=== PATIENT | female | born 1995 | race Caucasian/White ===

== ENCOUNTER 2018-08-16 19:52 | Emergency (ER) | payer OTHER ==
[~2018-08-16] VITALS: Ht 165.1 cm; Wt 63.5 kg
[2018-08-16 19:54] VITALS: BP 122/72
[2018-08-16] MEDS ORDERED: AMPICILLIN/SULBACTAM 3 GM in NACL 0.9% 100 ML IV ONE (22:40)
[2018-08-16] MEDS ORDERED: AMPICILLIN/SULBACTAM 3 GM VIAL ONE (23:02)
[2018-08-17 00:06] VITALS: BP 118/69
== END 2018-08-17 00:11 | disposition home or self-care (01) ==
LOC: MED 19:52
DX: K04.7 Periapical abscess without sinus (principal)
CPT/HCPCS: 96365; 99283; J0295

== ENCOUNTER 2022-10-11 06:10 | Emergency (ER) | payer OTHER ==
[~2022-10-11] VITALS: Ht 165.1 cm; Wt 77.6 kg
[2022-10-11 06:23] VITALS: BP 125/90
[2022-10-11] MEDS ORDERED: ONDANSETRON 4 MG/2 ML VIAL IVP ONE ×3 (06:55→10:40)
[2022-10-11] MEDS ORDERED: NACL 0.9% 1,000 ML IV ONE ×2 (06:55→08:15)
[2022-10-11] MEDS ORDERED: MORPHINE SULFATE 4 MG/ML SYR IVP ONE ×3 (06:55→11:35)
--- NOTE | 2022-10-11 07:07 | NUR ---
26YR OLD FEMALE BIB SELF C/O ABD PAIN /VAG BLEED. PT IS PREG PROX 8WKS. PT STATED VAG BLEEDING STARTED THIS AM. SHARP ABD PAIN 8/10 LOWER ABD . DENIES FEVER V//D. SKIN WARM AND DRY. HOB ELEVATED BED AT LOWEST LEVEL NKDA NO MED HX
--- NOTE | 2022-10-11 07:08 | NUR ---
20G IV CATH PLACED L AC LABS COLLECTED
--- NOTE | 2022-10-11 07:18 | NUR ---
Ultrasound at bedside.
--- NOTE | 2022-10-11 07:25 | NUR ---
REPORT RECEIVED FROM RAMON HICKS. ASSUMED CARE AT THIS TIME
--- NOTE | 2022-10-11 07:25 | NUR ---
REPORT RECEIVED FROM RAMON HICKS. ASSUMED CARE AT THIS TIME
[2022-10-11 07:40] LABS: BASOPHILS % (AUTO) 0.3 % (0.0-2.0); EOSINOPHILS # (AUTO) 0.1 K/uL (0-0.4); EOSINOPHILS % (AUTO) 0.9 % (0.0-4.0); HEMATOCRIT 42.7 % (36-48); HEMOGLOBIN 14.1 g/dL (12.0-16.0); LYMPHOCYTES # (AUTO) 1.9 K/uL (2.5-16.5); LYMPHOCYTES % (AUTO) 15.8 % (20.5-51.1); MEAN CORPUSCULAR HEMOGLOBIN 30 pg (27-31); MEAN CORPUSCULAR HGB CONC 33 g/dL (33-37); MEAN CORPUSCULAR VOLUME 91.2 fL (80-94); MONOCYTES # (AUTO) 0.6 K/uL (0.8-1.0); MONOCYTES % (AUTO) 5.2 % (1.7-9.3); NEUTROPHILS # (AUTO) 9.4 K/uL (1.8-7.7); NEUTROPHILS % (AUTO) 77.8 % (42.2-75.2); PLATELET COUNT (AUTO) 293 K/uL (140-450); RED BLOOD CELL COUNT(AUTO) 4.69 MIL/uL (4.20-5.40); RED CELL DISTRIBUTION WIDTH 13.4 % (11.6-13.7); WHITE BLOOD COUNT (AUTO) 12.1 K/uL (4.8-10.8)
[2022-10-11 07:56] LABS: APPEARANCE,URINE CLOUDY (CLEAR); COLOR,URINE AMBER (YELLOW)
[2022-10-11 07:57] LABS: BILIRUBIN,URINE NEGATIVE (NEGATIVE); BLOOD, URINE 3+ (NEGATIVE); LEUKOCYTE ESTERASE ,URINE NEGATIVE (NEGATIVE); NITRITE, URINE NEGATIVE (NEGATIVE); UGLUCOSE NEGATIVE (NEGATIVE)
[2022-10-11 07:57] LABS: ALBUMIN 4.1 g/dL (3.4-5.0); CREATININE 0.8 mg/dL (0.6-1.3); POTASSIUM 3.6 mmol/L (3.5-5.1); TOTAL BILIRUBIN 0.5 mg/dL (0.0-1.0)
[2022-10-11 08:12] LABS: RBC,URINE 11-20 (MOD) /HPF (0-5); WBC,URINE 0-5 /HPF (0-5)
[2022-10-11 08:13] LABS: OTHER CASTS, URINE None Seen /LPF (None Seen)
[2022-10-11 08:13] LABS: ANION GAP 14.8 (8-16); CARBON DIOXIDE 23.8 mmol/L (21-32)
[2022-10-11] MEDS ORDERED: ONDANSETRON 4 MG/2 ML VIAL ONE (08:20)
[2022-10-11] MEDS ORDERED: MORPHINE SULFATE 4 MG/ML SYR ONE (08:21)
--- NOTE | 2022-10-11 09:26 | NUR ---
pt amb to restroom
--- NOTE | 2022-10-11 09:30 | NUR ---
pt amb back to room
[2022-10-11] MEDS ORDERED: METHOTREXATE 100 MG/4 ML VIAL IM ONE (10:40)
[2022-10-11 10:43] VITALS: BP 112/63
[2022-10-11] MEDS ORDERED: ACET-9525 PO (11:01)
[2022-10-11] MEDS ORDERED: ONDA-188 PO (11:01)
[2022-10-11] MEDS ORDERED: ACET-10509 PO (11:01)
--- NOTE | 2022-10-11 12:00 | NUR ---
IV removed, catheter intact and site benign. Applied folded 4x4 gauze and tape to stop bleeding.
--- NOTE | 2022-10-11 12:01 | NUR ---
Patient discharged with v/s stable. Written and verbal after care instructions given and explained. Patient alert, oriented and verbalized understanding of instructions. Ambulatory with . All questions addressed prior to discharge. ID band removed. Patient advised to follow up with PMD. Rx of TYLENOL XTRA STRENGTH, HYDROCODONE AND ZOFRAN given. Opportunity to ask questions provided and answered.
--- NOTE | 2022-10-11 12:10 | NUR ---
The patient's care was reviewed and supervised by [place] 05 ERIKA, RN.
--- NOTE | 2022-10-14 10:04 | NUR ---
LATE ENTRY - CONFIRMED WITH NURSE NS INFUSION COMPLETED AT 0814 10/11/22.
== END 2022-10-11 12:01 | disposition home or self-care (01) ==
LOC: MED 06:10
DX: O46.91 Antepartum hemorrhage, unspecified, first trimester (principal); Z3A.01 Less than 8 weeks gestation of pregnancy
CPT/HCPCS: 36415; 76817; 80053; 81001; 81025; 83690; 84702; 85025; 86900; 86901; 87086; 96361; 96372; 96374; 96375; 96376; 99285; J2270; J2405; J7030; J9260; Q0092